=== PATIENT | female | born 1955 | race Caucasian/White ===

== ENCOUNTER 2025-03-13 23:55 | Inpatient (IN) | payer OTHER, SELFPAY ==
[2025-03-13 19:35] VITALS: BP 122/48
[2025-03-13 20:01] LABS: Hematocrit 31.6 % (37.0-47.0); Hemoglobin 11.1 g/dL (12.0-16.0); Mean Corp Hgb Conc. 35.1 g/dL (33.0-37.0); Mean Corpuscular Volume 85.2 fL (81.0-99.0); Platelet Count 390 10^3/uL (130-400); Red Cell Dist. Width 12.0 % (11.5-14.5)
[2025-03-13 20:23] LABS: ALT (SGPT) 25 U/L (0-35); AST (SGOT) 98 U/L (14-36); Albumin 4.7 g/dl (3.5-5.0); Alkaline Phosphatase 66 U/L (38-126); Blood Urea Nitrogen 30 mg/dl (7-17); Calcium 9.1 mg/dl (8.4-10.2); Carbon Dioxide 24 mmol/L (22-30); Chloride 77 mmol/L (98-107); Glucose 135 mg/dl (70-99); Potassium 3.6 mmol/L (3.5-5.1); Sodium 121 mmol/L (135-145); Total Protein 7.8 g/dl (6.3-8.2); eGFR 23.38
[2025-03-13 21:00] VITALS: BP 109/47
--- NOTE | 2025-03-13 22:28 | ED.GENMED ---
History of Present Illness
General
Chief Complaint: Change in Mental Status
Source: patient and family (Son who is present at the bedside)
Exam Limitations: none
Time Seen by Provider: 03/13/25 22:18
Nursing documentation reviewed up to this point in time: agreed with
History of Present Illness
History of Present Illness:
Note:
CHIEF COMPLAINT(S)
Change in mental status, mobility issues, decreased appetite, and confusion.
HISTORY OF PRESENT ILLNESS
The patient is a 69-year-old female with a significant change in mental status. She exhibits increased confusion, decreased mobility requiring assistance when navigating stairs, and marked reduction in activity levels, including lack of interest in
eating. Per her family member, the patient has not been performing her usual tasks like cleaning.
Laboratory results show markedly low sodium levels, necessitating hospital admission due to the potential risk of seizures or cardiac complications. Additionally, her thyroid-stimulating hormone (TSH) levels are elevated, indicative of
hypothyroidism likely due to non-compliance with her thyroid medication, which the family member supports. The patient was recently hospitalized due to severe leg swelling and was treated with antibiotics and steroids, but without much improvement.
There is also mention of pain, possibly chronic, but no specific management plan was confirmed.
Additional concerns include potential alcohol use, which may exacerbate the underlying conditions. The patient acknowledged previous alcohol use, although the current extent is minimized by her family member.
CHRONIC MEDICAL CONDITIONS SIGNIFICANTLY AFFECTING CARE
- Hypothyroidism
- Chronic pain
SOCIAL DETERMINANTS AFFECTING HEALTH
The patient has a history of alcohol use, though its current extent is unclear.
PHYSICAL EXAM
General: Alert, no acute distress.
Skin: Warm, dry.
Head: Normocephalic, atraumatic.
Neck: Supple, trachea midline.
Eyes, Ears, Nose, and Throat: Oral mucosa moist.
Cardiovascular: Normal peripheral perfusion, No edema.
Respiratory: Respirations are non-labored.
Gastrointestinal: Abdomen nondistended
Back: Normal range of motion, Normal alignment.
Musculoskeletal: Normal ROM, normal strength.
Neurological: Alert and oriented to person, place, time, and situation, No focal neurological deficit observed.
Psychiatric: Cooperative, appropriate mood and affect.
PLAN
The patients hyponatremia and hypothyroidism need urgent medical intervention. Hospital admission is advised to manage these conditions through fluid replacement and adjustment of thyroid medication. The possibility of a cardiac event due to low
sodium levels was discussed, highlighting the importance of prompt treatment. The patient�s family member was advised on the serious nature of these conditions and the need for admission to restore balance and alleviate confusion.
DIFFERENTIAL DIAGNOSIS
The Differential Diagnosis includes, in no particular order and is not limited to:
1. Hyponatremia
2. Hypothyroidism
3. Dementia
4. Stroke
5. Electrolyte imbalance
6. Acute alcohol withdrawal
7. Urinary tract infection
8. Medication side effects
9. Depression
10. Confusion due to thyroid imbalance
Disposition:
SUMMARY OF ENCOUNTER
The patient was seen in the emergency department due to a significant change in mental status, mobility issues, decreased appetite, and confusion. Upon evaluation, it was determined that the patient suffers from subclinical hypothyroidism and
hyponatremia. The patient exhibited increased confusion and decreased mobility, necessitating assistance with stairs, and displayed a marked reduction in activity levels, including not eating. Preliminary laboratory results indicated hyponatremia
and altered thyroid function. Nephrology was consulted regarding these findings, and the patient was ultimately being considered for admission to the hospice service for ongoing management.
DISPOSITION
Admit
MANAGEMENT OF THE PATIENTS CARE WAS DISCUSSED WITH
Consultation with nephrology for management decisions regarding hyponatremia and hypothyroidism.
PLAN
The plan involves addressing the patients hyponatremia and subclinical hypothyroidism with immediate medical intervention. Admission to hospice services was coordinated to provide ongoing monitoring and care. The plan also includes optimizing fluid
levels and adjusting thyroid medication as required, with close monitoring of electrolyte balance and thyroid levels.
INDEPENDENT REVIEW OF LABS AND INTERPRETATION OF TESTS
- My independent review of the metabolic panel shows hyponatremia.
- My independent review of thyroid function tests shows subclinical hypothyroidism.
- My independent review of urine osmolality is slightly low at 295 milliosmoles per kilogram.
- My independent review of random cortisol levels is 48.7.
- My independent review of urine sodium is 16 millimoles per liter.
MEDICAL DECISION MAKING
-Complexity of Data Reviewed: Chronic conditions affecting care include hypothyroidism and chronic pain. Differential Diagnosis includes hyponatremia, subclinical hypothyroidism, dementia, stroke, electrolyte imbalance, acute alcohol withdrawal,
urinary tract infection, medication side effects, depression, and confusion due to thyroid imbalance.
-Data:
Category 1
-Tests and Documents: Reviewed laboratory results indicating hyponatremia and subclinical hypothyroidism.
Category 3
-Discussion of management with nephrology regarding the patients hyponatremia and subclinical hypothyroidism with subsequent admission to the hospice service.
-Risk:
The risk was addressed by planning for immediate hospital admission for managing potential complications.
DIAGNOSIS
- Hyponatremia (ICD-10: E87.1)
- Subclinical Hypothyroidism (ICD-10: E02)
Phy Exam
Physical Exam
Physical Exam:
.
Course
Orders/Labs/Results
Orders:
Orders
03/13/25 19:43
Electrocardiogram (*1) Urgent
Reason for Study: Other
Other Reason for Exam: altered mental status
03/13/25 19:44
EKG- Treatment ONCE
03/13/25 19:51
Alcohol Urgent
CMP [Comprehensive Metabolic Panel] Urgent
Magnesium Urgent
Comment: ADD ON
03/13/25 19:52
Complete Blood Count/No Diff Urgent
Cortisol, Random Urgent
Comment: ADD ON
Free T4 Urgent
TSH Reflex To Free T4 Urgent
03/13/25 22:39
CT Head W/o Iv Contrast Urgent
Comment:
Reason For Exam: confusion
03/13/25 22:44
Add On- LAB Stat
Tests Added?: random cortisol
03/13/25 23:25
Add On- LAB Stat
Tests Added?: alcohol
Osmolality, Random Urine Urgent
Date Specimen was Collected: 03/13/25
Time Specimen was Collected: 23:24
Urine Sodium Urgent
Date Specimen was Collected: 03/13/25
Time Specimen was Collected: 23:24
03/13/25 23:28
CR Chest - 2 Views Stat
Comment:
Reason For Exam: Cough, ams, eval for consolidation
03/13/25 23:31
COVID-19 Antigen Stat
Source: Nasal Swab
03/13/25 23:42
Add On- LAB Stat
Tests Added?: magnesium level
03/13/25 23:46
Admit/Transfer Patient As Directed
Co-Sign Provider:
Level of Care: Inpatient admission
Assign to:: Telemetry
Physician / Group: Lia
Diagnosis: Hyponatremia
Reason for Telemetry: Medication for Arrhythmia
Date to Stop Telemetry: 03/15/25
Time to Stop Telemetry: 11:00
Reason for Hospitalization: Hyponatremia, altered mental status
Expected length of stay greater than two midnights?: Yes
ELOS- Estimated Length of Stay in days: 2
I certify the patient meets the requirements for IP care: Yes
PRN Pain Medication Management As Directed
May give lesser potent ordered pain med per pt: Yes
preference::
Protocol:: Medication orders for pain may be administered in a
manner that supports deferring to patient preference
when the pt is:
- Requesting an ordered lesser potent pain medication.
Least to most potent pain medications are defined
as: acetaminophen < NSAID < tramadol < opioids
(morphine, oxycodone, hydromorphone).
- Requesting a lesser dose of the same medication IF
ORDERED.
- Requesting a less intrusive route of administration
if both routes are prescribed by the provider (PO <
IV).
03/13/25 23:47
Code Status As Directed
Resuscitation Status: Full Code
03/15/25 11:00
DC Protocol for Telemetry ONCE
Abnormal Lab Results
03/13/25 03/13/25 03/13/25
19:51 19:52 23:25
WBC 12.8 H 10^3/uL
(4.8-10.8)
RBC 3.71 L 10^6/uL
(4.20-5.40)
Hgb 11.1 L g/dL
(12.0-16.0)
Hct 31.6 L %
(37.0-47.0)
Sodium 121 L mmol/L
(135-145)
Chloride 77 L mmol/L
(98-107)
BUN 30 H mg/dl
(7-17)
Creatinine 2.2 H mg/dL
(0.6-1.0)
Glucose 135 H mg/dl
(70-99)
Magnesium 0.7 L* mg/dl
(1.6-2.3)
AST 98 H U/L
(14-36)
TSH (Reflex) 28.90 H uIU/ml
(0.47-4.68)
Urine Osmolality 295 L mOsm/kg
(300-900)
Urine Sodium 16 L mmol/L
(30-90)
03/13/25 19:52
03/13/25 19:51
Vital Signs
Initial and Last Documented VS:
Initial Vital Signs
Temp Pulse Resp BP Pulse Ox
98.2 F 87 18 122/48 97
03/13/25 19:35 03/13/25 19:35 03/13/25 19:35 03/13/25 19:35 03/13/25 19:35
Last Documented Vital Signs
Temp Pulse Resp BP Pulse Ox
98.2 F 102 23 146/83 98
03/13/25 19:35 03/13/25 23:30 03/13/25 23:30 03/13/25 23:22 03/14/25 00:02
*Pulse Oximetry
SaO2: 100
Oxygen Mode of Delivery: Room air
Patient hypoxic: no
*Critical Care Note
Total Time (30-74mins, 75-104mins- exclusive of procedures): Not Applicable
ED Attending Note
-
Portions of this chart may have been created with voice recognition software.� Occasional wrong word or��sound alike� substitutions may have occurred due to the inherent limitations of voice recognition software.
Discharge Plan
Departure
Patient Disposition: Admit
Date of Disposition: 03/13/25
Time of Disposition: 22:28
Admit to: IMU
Presentation/result/management discussed w/ accepting MD/DO: Hospitalist
Discharge Problem:
Subclinical hypothyroidism, Acute hyponatremia
Interventions
Interventions:
*Risk Screen - Suicide Last Done: 03/13/25 19:39
*General Assessment Last Done: 03/13/25 21:31
*Neglect/Abuse Screening Last Done: 03/13/25 19:39
*ED- Fall Risk Assessment Last Done: 03/13/25 21:31
*ED COVID-19 Vaccine History Last Done: 03/13/25 21:31
*ED Influenza Vaccine History Last Done: 03/13/25 21:31
ED- Neurological Assessment Last Done: 03/13/25 21:31
--- NOTE | 2025-03-13 23:14 | HPS.HSE ---
Family Physician
-
Family Physician: Ludivina Randall
Chief Complaint
-
Altered mental status
History of Present Illness
This is a 69-year-old female with past medical history significant for COPD not on home O2, hypertension, bulimia, hypothyroid, history of breast cancer status post lumpectomy in the remote past, history of diverticulitis complicated by abscess
status post bowel resection, presents to the emergency department for altered mental status according to family members.
Patient herself denies any new symptoms except lethargy fatigue and weakness. Family reports that she has been having symptoms over the last 2 weeks. She has not been taking her medications regularly. She has not been eating. Patient states she
has only been drinking water. She stopped drinking alcohol about 2 weeks ago. She says she does not take her medications because she is unable to open her bottle. She is also has falls. She denies any lightheadedness or dizziness. She denies
any palpitations. She denies having any chest pain. She denies any lower extremity swelling.
She was admitted at having seen in December for lower extremity swelling that was thought to be secondary to cellulitis and possibly calcium channel blockade. She was started on spironolactone 1250 mg daily at that time. She has otherwise been on
her usual medications although she has not been taking them. Patient denies any significant diarrhea with the family reported that she had 2 days of diarrhea in the last 2 weeks. She has no nausea or vomiting. She denies constipation. She denies
urinary frequency incontinence or urgency. There has been no focal neurological deficits according to family members including no speech abnormalities, no facial droop no numbness or tingling. They do not know the last time she took any of her
medications.
On arrival in the emergency department she was afebrile, blood pressure was 109/47 with a pulse of 99 and she was satting 100% on room air. ECG shows atrial fibrillation with a rate of 102 QTc of 508 but otherwise unremarkable.
CBC shows a white count of 0.8 hemoglobin 11.1 and a platelet count of 390. Sodium of 121 potassium 3.6 BUN 30 and creatinine 2.2. AST was 98 the rest of the LFTs unremarkable. She has a TSH of 29, free T4 was 1.6.
Medical History
Past Medical History
Past Medical History: Reports Cancer (Breast cancer status postlumpectomy), COPD (Not on home O2), HTN, Hypercholesterolemia, Hypothyroidism, Psychiatric (Alcohol dependence) and Other (Peptic ulcer disease, history of bleeding ulcer many years ago)
Past Surgical History: Reports Bowel Resection (History of diverticulitis with abscess status post bowel resection and reanastomosis) and Other (Right lumpectomy)
Social History
Tobacco: Smoker
Alcohol: Daily
Drug: None
Personal: Single
Living: With Family
Employment: Not Employed
Family History
Family History: Not pertinent
Allergies / Home Medications
Allergies reflects when Allergies were last updated in [employer].
Home Medications with original date entered in [employer]
Allergy/Medication List:
Allergies
Allergy/AdvReac Type Severity Reaction Status Date / Time
No Known Allergies Allergy Verified 03/13/25 19:38
Home Medications
albuterol sulfate 90 mcg/actuation aerosol inhaler 2 inh inhalation Q6H 03/13/25
fluticasone furoate 100 mcg-vilanterol 25 mcg/dose inhalation powder (Breo Ellipta) inhalation 03/13/25
levothyroxine 100 mcg tablet 100 mcg PO DAILY 03/13/25
olmesartan 40 mg tablet 40 mg PO DAILY 03/13/25
pantoprazole 40 mg tablet,delayed release 40 mg PO DAILY 03/13/25
simvastatin 20 mg tablet 20 mg PO HS 03/13/25
spironolactone 50 mg tablet 50 mg PO DAILY 03/13/25
Review of Systems
-
History Source: Patient and Family
Constitutional: Reports Sleep Disturbance (increased sleepiness); Denies Chills
EENT: Reports No Symptoms
Respiratory: Reports Cough (chronic); Denies Trouble Breathing
Cardiac: Denies Chest Pain, Diaphoresis, Palpitations or Syncope
Abdomen/GI: Reports No Symptoms
: Reports No Symptoms
Musculoskeletal: Reports No Symptoms
Skin: Reports No Symptoms
Neurological: Reports No Symptoms
Endocrine: Reports No Symptoms
Hematologic/Lymphatic: Reports No Symptoms
Psych: Reports No Symptoms
Physical Exam
Vital Signs
Vital Signs
Temp Pulse Resp BP Pulse Ox
98.2 F 100 15 109/47 98
03/13/25 19:35 03/13/25 22:45 03/13/25 22:45 03/13/25 21:00 03/13/25 22:45
Physical Exam
General: No Apparent Distress
HEENT: NormoCephalic, Moist mucous membranes and Atraumatic
Respiratory: Clear
Cardiac: S1/S2, Irregular Rhythm and Peripheral Edema (trace); No Murmur or Rub
Breast: Deferred by me
GI: Soft, Non Tender, Non Distended and Normal Bowel Sounds; No Organomegaly
Rectal: Deferred by Provider
Genito-urinary: Deferred by me
Musculoskeletal: No Clubbing, No Cyanosis and Edema, Left Lower Extremity (trace left lower ext edema c/w recent cellulitis)
Skin: No Rash
Neuro: AO x 3 (oriented to person, place, year, month. ), Nonfocal/grossly intact and Cranial Nerves Intact; No Slurred Speech or Facial Droop
Psych: Calm
Laboratory Results
-
03/13/25 19:52
03/13/25 19:51
Laboratory Results
Total Bilirubin 1.1 mg/dl (0.2-1.3) 03/13/25 19:51
AST 98 U/L (14-36) H 03/13/25 19:51
ALT 25 U/L (0-35) 03/13/25 19:51
Alkaline Phosphatase 66 U/L (38-126) 03/13/25 19:51
Data Reviewed
-
Diagnostic Radiology: Image Personally Visualized and interpreted
CT Scan: Report Reviewed by me
Medical Tests (Nuc Med, Echo, EKG etc): Image Personally Visualized and interpreted
Lab Data: Labs Reviewed by me
Old Records: Reviewed
Impression/Plan
-
IMPRESSION:
69-year-old with past medical history significant for hypothyroid, hypertension, hyperlipidemia, COPD not on home O2, history of breast cancer status post lumpectomy in the past, history of a bowel resection presents to the emergency department with
2 weeks of decline in mental status and weakness. Mostly patient has been having insomnia. She has not been able to accomplish ADLs and has not been taking her medications. No obvious signs of infection on examination here. No symptoms
consistent with an infection on history. Found to have renal dysfunction with a creatinine of 2.2, family believes baseline creatinine is less than 1, has leukocytosis, elevated TSH and hyponatremia to 121. She also found to have new atrial
fibrillation with rate control. Patient endorses alcohol use with her last drink was stated to be about 2 weeks ago. She endorses decreased p.o. intake, loss of appetite.
PLAN:
Altered mental status -no focal deficits. New atrial fibrillation and cannot rule out multifocal thromboembolic event. There is evidence of toxic metabolic encephalopathy with hyponatremia although patient is currently alert oriented x 3 without
any acute symptoms. M no evidence of offending medications and patient has not been compliant anyway.
-Admit to telemetry
-In addition to metabolic workup below will do a stroke workup
-Neurochecks every 6 hours
-CT head pending, obtain echocardiogram and MRI in am
- Lipid panel, A1c
-Additional workup for toxic metabolic encephalopathy including UA, check folate B12 given h/o etoh
- TSH is elevated with normal free T4 c/w subclinical hypothyroid and patient is on synthroid, will continue current dosing
Hyponatremia - na 121, baseline is normal per family, Picture is multifactorial with elements of hypovolemia on history, tea/toast diet and free water intake. She is not on offending meds except spironolactone and has elevated Cr c/w LENA on CKD.
- Rolando 16, Uosm 295. C/W ADH presence or dehydration. D/W nephro, started 3% saline 20ml/hr
- free water restriction
- hold spironolactone for now
- random cortisol 46, no insufficiency
- nephrology consult
AFIB - new onset afib, rate controlled in the low 100s. Hx of edema to dihydropyridine. hx of peptic ulcer but no evidence of GI bleed recently
- start metoprolol tartrate 25 bid
- [id number] = 3, recommend eliquis, given weight and renal function 2.5 q 12
- continue ppi
- echo as above
- cardiology consult
LENA
- hold olmesartan and spironolactone for now
- obtain records from [facility]
Hypothyroid - H/O thyroid ablation therapy on levothyroxin. Poor compliance likely more than last 2 weeks. TSH 28, FT4 1.6.
- restart pt levothyroxine with goal tsh < 8
ETOH - LAST drink about 2 wks ago. Levels pending. No signs of withdrawal
- monitor for now
- suspect mild etoh induced liver injury with isolated AST elevation
- encourage cessation in setting of mental status changes
Pt consult
Case management
DVT PPX - to start apixaban 2.5
Code status - Full code
[2025-03-13 23:22] VITALS: BP 146/83
[2025-03-13 23:52] LABS: Cortisol, Random 48.7 ug/dl
[2025-03-13 23:52] LABS: COVID-19 Antigen Negative (Negative)
[2025-03-14] VITALS (8 sets, daily range): BP systolic 83–145; BP diastolic 38–67; PULSE 81–95
[2025-03-14 00:05] LABS: Magnesium 0.7 mg/dl (1.6-2.3)
[2025-03-14] MEDS: MAGNESIUM SULFATE 50 IV (01:08)
[2025-03-14] MEDS: SODIUM CHLORIDE 3% 250 IV ×2 (01:33→13:40)
[2025-03-14] MEDS: FLUSH (NSS) 1 FLUSH IV (01:34)
--- NOTE | 2025-03-14 02:30 | PTCARENOTE ---
Pt brought to unit from ED via stretcher. A&O to self. Ambulated from stretcher to bed with assistance of 1. Pt able to answer some admission questions. Pt confused and forgetful. NIH of 3. MSAS of 2. Bed alarm placed. Call light within reach. Plan
of care ongoing.
[2025-03-14] MEDS: SYNTHROID 100 MCG PO (05:42)
[2025-03-14 06:42] LABS: Hematocrit 26.2 % (37.0-47.0); Hemoglobin 9.5 g/dL (12.0-16.0); Mean Corp Hgb Conc. 36.3 g/dL (33.0-37.0); Mean Corpuscular Volume 84.0 fL (81.0-99.0); Platelet Count 256 10^3/uL (130-400); Red Cell Dist. Width 11.9 % (11.5-14.5)
[2025-03-14 06:49] LABS: Blood Urea Nitrogen 31 mg/dl (7-17); Calcium 8.2 mg/dl (8.4-10.2); Carbon Dioxide 24 mmol/L (22-30); Chloride 81 mmol/L (98-107); Glucose 100 mg/dl (70-99); HDL Cholesterol 81 mg/dl; LDL Cholesterol, Calculated 33 mg/dl; Magnesium 1.7 mg/dl (1.6-2.3); Potassium 3.2 mmol/L (3.5-5.1); Sodium 119 mmol/L (135-145); Very Low Density Lipoprotein 23 mg/dl (0-30); eGFR 26.22
[2025-03-14 07:33] LABS: Folate 4.5 ng/ml (2.76-20); Vitamin B12 903 pg/ml (239-931)
[2025-03-14] MEDS: SYMBICORT 160/4.5 MCG INHALER INH (08:16)
[2025-03-14] MEDS: THIAMINE INJECTION 200 MG IV ×2 (09:25→21:23)
[2025-03-14] MEDS: MAGNESIUM OXIDE 400 MG PO (09:25)
[2025-03-14] MEDS: KCL 270 MEQ IV (09:25)
[2025-03-14] MEDS: FOLVITE 1 MG PO (09:27)
[2025-03-14] MEDS: PROTONIX 40 MG PO (09:27)
[2025-03-14] MEDS: LOPRESSOR PO ×2 (09:27→21:28)
[2025-03-14] MEDS: ELIQUIS 2.5 MG PO (09:27)
--- NOTE | 2025-03-14 11:37 | CON.CAR ---
Addendum entered and electronically signed by Sohan Darden MD 03/14/25 12:26:
I saw and examined the patient.
The Well Tester's note was reviewed and I agree with the note.
Comment: GEN: No distress, awake, Ox3
HEENT: supple, anicteric, mmm
LUNGS: CTA, no wheezes/rales
CV: Reg with ectopy, S1/S2, 1/6 syst LSB, no gallop
ABD: soft, BS+, NT/ND
EXT: No edema
NEURO: Gross non-focal
SKIN: No rash
Plan:
69-year-old female with past medical history of COPD, tobacco use, hypertension, hypothyroidism, breast cancer status post XRT, diverticulitis status post bowel obstruction and abscess and alcoholic abuse presents with confusion, lethargy, acute
renal failure, and hyponatremia. The patient states that she has been drinking lots of water has had decreased mobility and feeling poorly. She is also having memory issues. She denies any chest pains. She denies any shortness of breath. She
gets rare palpitations. We are asked to see her for possible atrial fibrillation.
Echocardiogram March 14, 2025 reveals EF of 60% with mild AI and moderate TR. PA pressure 36
Telemetry and EKG reviewed which reveals sinus rhythm with frequent PACs and ectopic atrial rhythm.
Plan she presents with marked hyponatremia and acute renal failure. Creatinine is improving. Total CK was also elevated.
She was given 3% saline and clinically is improving. Her sodium currently though is 119. At this point we do not see any evidence of atrial fibrillation and no indications for anticoagulation. She has premature beats and PACs.
Will continue metoprolol 12.5 mg p.o. twice daily.
Her TSH is markedly elevated but free T4 was normal. Continue thyroid supplement.
Would follow peripherally and check telemetry, however if no clear atrial fibrillation would treat underlying medical issues.
Original Note:
Consultation
Consultation Request
Date/Time Consultation Requested: 03/14/2025
Date/Time Consultation Performed: 03/14/2025
Requesting Provider: Dr. Montez
Performing Provider: Faye Hernández PA-C for Dr. Darden
Reason for Consultation: Possible atrial fibrillation
Medical History
-
History of Present Illness:
Patient is a 69-year-old female with past medical history significant for COPD with ongoing tobacco abuse, hypertension, hypothyroid, right sided breast cancer status post lumpectomy and XRT, diverticulitis with abscess and bowel obstruction and
alcohol abuse who presents to emergency department 03/13/2025 with altered mental status, weakness and lethargy. Patient's family reports over the last 2 weeks patient had been more confused. There was noncompliance in taking her medications. Her
appetite has been reduced and she was drinking a lot of water. Per patient she has only been drinking alcohol on weekends but does have prior history of daily use. Family also reported decreased mobility and falls. However, patient reports she
has only had 'a few falls.' Patient reports her memory is not the greatest and she is more forgetful. Patient denies nausea vomiting or diarrhea. She was placed on Aldactone in December for lower extremity edema. Unclear if she has been taking
it. On arrival to emergency department patient was found to have LENA with creatinine of 2.2, electrolyte disturbances with sodium 121, potassium 3.6, magnesium 0.7. TSH was found to be elevated at 28.9. CK 1127. AST elevated at 98. Chest x-ray
showed evidence of COPD. EKG showed sinus rhythm with PACs and anterolateral T wave inversion/abnormality. Patient received aggressive repletion of her magnesium. Cardiology being asked to see patient for concerns for atrial fibrillation.
However upon review of telemetry it appears that patient is having sinus rhythm with frequent PACs and ectopic atrial rhythm.
Past medical history:
COPD with ongoing tobacco abuse
Hypertension
Hypothyroidism
Right-sided breast cancer status post XRT and lumpectomy in early 1999
Diverticulitis complicated by abscess with bowel obstruction
History of alcohol abuse
History of noncompliance with medications
Past Medical History
Past Medical History: Other (See HPI)
Past Surgical History: Bowel Resection (For diverticulitis with abscess) and Other
Social History
Tobacco: Smoker
Alcohol: Daily (Except recently patient reports she has only been drinking alcohol on weekends)
Drug: None
Living: With Family (Son Matt)
Family History
Family History: Reviewed & Not Pertinent
Allergies / Home Medications
Allergy/AdvReac Type Severity Reaction Status Date / Time
No Known Allergies Allergy Verified 03/13/25 19:38
�Medication �Instructions �Recorded �Confirmed �Type
albuterol sulfate 90 mcg/actuation 2 inh inhalation Q6HPRN PRN 03/13/25 03/14/25 History
aerosol inhaler sob/wheezing
fluticasone furoate 100 1 inh inhalation DAILY 03/13/25 03/14/25 History
mcg-vilanterol 25 mcg/dose Lung/Breathing Issues
inhalation powder (Breo Ellipta)
levothyroxine 100 mcg tablet 100 mcg PO DAILY Thyroid 03/13/25 03/14/25 History
olmesartan 40 mg tablet 40 mg PO DAILY Blood Pressure 03/13/25 03/14/25 History
pantoprazole 40 mg tablet,delayed 40 mg PO DAILY Gastrointestinal 03/13/25 03/14/25 History
release Issue
simvastatin 20 mg tablet 20 mg PO HS cholesterol 03/13/25 03/14/25 History
spironolactone 50 mg tablet 50 mg PO DAILY Fluid Retention/BP 03/13/25 03/14/25 History
lorazepam 1 mg tablet 1 mg PO BIDPRN PRN anxiety 03/14/25 03/14/25 History
oxycodone 5 mg tablet 5 mg PO Q4HPRN PRN moderate pain 03/14/25 03/14/25 History
Review of Systems
-
History Source: Patient
All other systems: Negative unless noted
Physical Exam
Vital Signs
Temp Pulse Resp BP Pulse Ox
98.0 F 81 17 104/50 95
03/14/25 11:00 03/14/25 11:00 03/14/25 11:00 03/14/25 11:00 03/14/25 11:00
GEN: No distress, awake, Ox3
HEENT: supple, anicteric, mmm
LUNGS: Few scattered coarse breath sounds improved after coughing otherwise CTA, no wheezes
CV: Reg with occasional ectopy, S1/S2, 1/6 syst murmur at LSB
ABD: soft, BS+, NT/ND
EXT: No edema, clubbing or cyanosis
NEURO: Forgetful and poor historian
SKIN: No rash, warm, dry, pink
Lab Results
03/14/25 05:42
Impression / Plan
-
PCP: Honey Randall
[employer] Official: None prior to admission, initial consultation Dr. Darden
Impression:
Presented 03/13/2025 with altered mental status, weakness, lethargy and generalized fatigue
LENA, unknown baseline creatinine
Electrolyte derangement
Hyponatremia
Hypokalemia
Hypomagnesemia
Abnormal LFTs
Hypothyroidism, TSH 28.9
COPD with ongoing tobacco abuse
Hypertension
Hypothyroidism
Right-sided breast cancer status post XRT and lumpectomy in early 1999
Diverticulitis complicated by abscess with bowel obstruction
History of alcohol abuse
History of noncompliance with medications
Echo 03/14/2025: EF 68%. Mild AI. Moderate TR with PAP 36 mmHg. Trivial pericardial effusion
Plan:
Presented 03/13/2025 with altered mental status, weakness, lethargy and generalized fatigue. She was found to have LENA with significant electrolyte derangement as well as abnormal AST and hypothyroidism.
Cardiology being asked to see patient for possible atrial fibrillation. Upon review of initial EKG and as well as telemetry patient is in sinus rhythm with frequent PACs and occasional ectopic atrial rhythm. There is no evidence of atrial
fibrillation. Would continue with ongoing electrolyte repletion/correction
Echocardiogram this admission discussed with patient which shows shows preserved ejection fraction with mild AI and moderate TR.
Electrolyte derangement likely secondary to poor dietary intake as well as drinking excessive water. Ongoing repletion of electrolytes, with improvement of magnesium from 0.7 to 1.7, potassium 3.2 with ongoing repletion. Sodium initially 121
however now 119. Nephrology has been consulted. Defer management to them. Would restrict free water.
TSH 28.9 with free T4 1.36. Patient has not been taking her levothyroxine which likely is accounting for abnormality.
Head CT shows moderate cortical atrophy and chronic ischemic disease but no acute abnormality. MRI has been ordered.
HPI 03/14/2025:
Patient is a 69-year-old female with past medical history significant for COPD with ongoing tobacco abuse, hypertension, hypothyroid, right sided breast cancer status post lumpectomy and XRT, diverticulitis with abscess and bowel obstruction and
alcohol abuse who presents to emergency department 03/13/2025 with altered mental status, weakness and lethargy. Patient's family reports over the last 2 weeks patient had been more confused. There was noncompliance in taking her medications. Her
appetite has been reduced and she was drinking a lot of water. Per patient she has only been drinking alcohol on weekends but does have prior history of daily use. Family also reported decreased mobility and falls. However, patient reports she
has only had 'a few falls.' Patient reports her memory is not the greatest and she is more forgetful. Patient denies nausea vomiting or diarrhea. She was placed on Aldactone in December for lower extremity edema. Unclear if she has been taking
it. On arrival to emergency department patient was found to have LENA with creatinine of 2.2, electrolyte disturbances with sodium 121, potassium 3.6, magnesium 0.7. TSH was found to be elevated at 28.9. CK 1127. AST elevated at 98. Chest x-ray
showed evidence of COPD. EKG showed sinus rhythm with PACs and anterolateral T wave inversion/abnormality. Patient received aggressive repletion of her magnesium. Cardiology being asked to see patient for concerns for atrial fibrillation.
However upon review of telemetry it appears that patient is having sinus rhythm with frequent PACs and ectopic atrial rhythm.
Data Reviewed
-
EKG: Report Reviewed by me, Discussed with Physician and Discussed with Patient
Radiology: Report Reviewed by me, Discussed with Physician and Discussed with Patient
Medical Tests (Nuc Med, Echo etc): Report Reviewed by me, Discussed with Physician and Discussed with Patient
Labs: Labs Reviewed by me, Discussed with Physician and Discussed with Patient
Old Records: Reviewed
--- NOTE | 2025-03-14 12:13 | W.CON.NEPH ---
Medical History
-
Chief Complaint: AMS
History of Present Illness:
69-year-old female with past medical history significant for COPD not on home O2, hypertension on Olmesartan, spironolactone, bulimia, hypothyroid on levothyroxine, history of breast cancer status post lumpectomy in the remote past, history of
diverticulitis complicated by abscess status post bowel resection, presents to the emergency department for altered mental status according to family members on 03/13. per family report she has been having symptoms over the last 2 weeks. She has
not been taking her medications regularly. She has not been eating. Patient states she has only been drinking water 4-6cups of 16oz.. She stopped drinking alcohol about 2 weeks ago. She says she does not take her medications because she is
unable to open her bottle. She is also has falls. She denies any lightheadedness or dizziness. She denies any palpitations. She denies having any chest pain. She denies any lower extremity swelling. no fever. has smoker cough. No dysuria, no
abd pain or n/v other than lack of appetite. Her balance is off too. Labs noted sodium 121, cr 2.2, bun 30. TSH was 29, FT4 1.6, WBC 12.8, hb 11.1, plt 390. Nephrology consulted for managing hyponatremia. She was getting 3% saline and sodium down to
119 this am.
She was at OSH in December for lower extremity swelling that was thought to be secondary to cellulitis and possibly calcium channel blockade. She was changed spironolactone at that time. She usually has care at [facility] so waiting for records.
Does not recall of kidney issues.
Past Medical History
Breast cancer status postlumpectomy), COPD (Not on home O2), HTN, Hypercholesterolemia, Hypothyroidism, Psychiatric (Alcohol dependence) and Other (Peptic ulcer disease, history of bleeding ulcer many years ago
Past Surgical History: Other (BOwel resection, History of diverticulitis with abscess status post bowel resection and reanastomosis) and Other (Right lumpectomy)
Social History
Tobacco: Smoker (1PPD)
Alcohol: Daily (2-3drinks, more on weekend)
Drug: None
Personal: Single
Living: With Family
Employment: Not Employed
Family History
Family History: Not Pertinent
Allergies / Home Medications
Allergy/AdvReac Type Severity Reaction Status Date / Time
No Known Allergies Allergy Verified 03/13/25 19:38
�Medication �Instructions �Recorded �Confirmed �Type
albuterol sulfate 90 mcg/actuation 2 inh inhalation Q6HPRN PRN 03/13/25 03/14/25 History
aerosol inhaler sob/wheezing
fluticasone furoate 100 1 inh inhalation DAILY 03/13/25 03/14/25 History
mcg-vilanterol 25 mcg/dose Lung/Breathing Issues
inhalation powder (Breo Ellipta)
levothyroxine 100 mcg tablet 100 mcg PO DAILY Thyroid 03/13/25 03/14/25 History
olmesartan 40 mg tablet 40 mg PO DAILY Blood Pressure 03/13/25 03/14/25 History
pantoprazole 40 mg tablet,delayed 40 mg PO DAILY Gastrointestinal 03/13/25 03/14/25 History
release Issue
simvastatin 20 mg tablet 20 mg PO HS cholesterol 03/13/25 03/14/25 History
spironolactone 50 mg tablet 50 mg PO DAILY Fluid Retention/BP 03/13/25 03/14/25 History
lorazepam 1 mg tablet 1 mg PO BIDPRN PRN anxiety 03/14/25 03/14/25 History
oxycodone 5 mg tablet 5 mg PO Q4HPRN PRN moderate pain 03/14/25 03/14/25 History
Review of Systems
-
All other systems: Negative unless noted
Physical Exam
Vital Signs
Vital Signs
Temp Pulse Resp BP Pulse Ox
98.0 F 81 17 104/50 95
03/14/25 11:00 03/14/25 11:00 03/14/25 11:00 03/14/25 11:00 03/14/25 11:00
Lab Results
WBC 9.3 10^3/uL (4.8-10.8) 03/14/25 05:42
RBC 3.12 10^6/uL (4.20-5.40) L 03/14/25 05:42
Hgb 9.5 g/dL (12.0-16.0) L 03/14/25 05:42
Hct 26.2 % (37.0-47.0) L 03/14/25 05:42
Plt Count 256 10^3/uL (130-400) D 03/14/25 05:42
eGFR 26.22 03/14/25 05:42
Phosphorus 3.9 mg/dl (2.5-4.5) 03/14/25 05:42
Albumin 4.7 g/dl (3.5-5.0) 03/13/25 19:51
Abnormal Lab Results
03/13/25 03/13/25 03/13/25
19:51 19:52 23:25
WBC 12.8 H
RBC 3.71 L
Hgb 11.1 L
Hct 31.6 L
Sodium 121 L
Potassium
Chloride 77 L
BUN 30 H
Creatinine 2.2 H
Glucose 135 H
Calcium
Magnesium 0.7 L*
AST 98 H
Creatine Kinase
TSH (Reflex) 28.90 H
Urine Osmolality 295 L
Urine Sodium 16 L
03/14/25 03/14/25
05:42 11:25
WBC
RBC 3.12 L
Hgb 9.5 L
Hct 26.2 L
Sodium 119 L* 121 L
Potassium 3.2 L
Chloride 81 L 83 L
BUN 31 H 32 H
Creatinine 2.0 H 1.7 H
Glucose 100 H 112 H
Calcium 8.2 L
Magnesium
AST
Creatine Kinase 1127 H
TSH (Reflex)
Urine Osmolality
Urine Sodium
Physical Exam
General: Awake, Alert, Oriented, AOx3, No Distress and Nontoxic
HEENT: EOMI, Anicteric, Conjunctivae Clear and Facial Symmetry
Respiratory: Clear, Normal Excursion and Nonlabored Respirations
Cardiac: S1/S2 and Regular Rate/Rhythm
Breast: Deferred by me
Abdomen: Soft, Nontender and Nondistended
Musculoskeletal: No Cyanosis and Edema (trace)
Skin: No Rash
Neuro: Nonfocal/Grossly Intact
Psych: Appropriate
Data Reviewed
-
Labs: Labs Reviewed by me, Discussed with Nurse and Discussed with Patient
Assessment/Plan
-
IMP:
Altered mental status
New atrial fibrillation
LENA
Hyponatremia
Hypokalemia
Hypomagnesemia
Hypothyroid - H/O thyroid ablation therapy on levothyroxin. Poor compliance likely more than last 2 weeks. TSH 28, FT4 1.6.
ETOH
Hypocalcemia
Mild rhabdomyolysis
PLan:
A/w AMS, decreased po intake and meds
LENA-suspect prerenal, however recent addition of aldactone in Sep too
check UA and bladder scan, renal US , holding ACEI and MRA
Hyponatremia-high ADH state , U osmo 295 and U na low 16, was only taking liquids recently+chr ETOH use
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
recheck labs now and goal of correction 6-8meq/day , cont HTS +/-lasix
maintain FR 40ounces/day
replace k and mg
encourage solute intake
TSH high 28, resumed on LT4
BP soft, hold all anti HTN meds
afib per cards
d/w pt and nursing
[2025-03-14 12:29] LABS: Blood Urea Nitrogen 32 mg/dl (7-17); Calcium 8.4 mg/dl (8.4-10.2); Carbon Dioxide 26 mmol/L (22-30); Chloride 83 mmol/L (98-107); Glucose 112 mg/dl (70-99); Potassium 3.7 mmol/L (3.5-5.1); Sodium 121 mmol/L (135-145); eGFR 31.86
--- NOTE | 2025-03-14 14:16 | W.PN.HOSP.TC ---
Today's Communication/Plan
-
Assessment / Plan
Assessment / Plan
General: No Apparent Distress, Comfortable and Conversant
HEENT: NormoCephalic, Moist mucous membranes, Atraumatic
Respiratory: Clear and Non Labored Respirations
Cardiac: S1/S2 and Regular Rhythm; No Rub or Gallop
GI: Soft, Non Tender, Non Distended and Normal Bowel Sounds
Musculoskeletal: No Edema, no deformity
Skin: Warm and dry
: NO Patricia
Neuro: Awake, Alert, Nonfocal/grossly intact
Psych: Calm and Intact Judgment/Insight
Ms. Sharma is a 69-year-old female with medical history of COPD (not on home oxygen), hypertension, hypothyroidism, peptic ulcer disease, diverticulitis (status post bowel resection and reanastomosis), breast cancer (status post lumpectomy), and
alcohol use who presented with lethargy and fatigue. Her symptoms began approximately 2 weeks ago which coincides with when she stopped drinking alcohol. Her symptoms have been progressing since that time. She has not been taking her home
medications consistently and has not been eating. Reportedly she has been having falls. In the ED she was found to be borderline hypotensive and had a serum sodium of 121 and a creatinine of 2.2. Her TSH was elevated at 29 with a normal free T4
of 1.6. She was reportedly noted to have A-fib with controlled heart rate. However EKG shows normal sinus rhythm with PACs. She was started beta-blockade considering her prior history of lower extremity edema with calcium channel blockers. She
was started on hypertonic saline and admitted for further evaluation and management.
Acute metabolic encephalopathy:
- Likely contributed to by hyponatremia, although this is likely chronic considering her history of alcohol use
- Long-term alcohol abuse also likely a contributing factor here
- Continue hypertonic IV fluids for correction of hyponatremia, appreciate nephrology guidance
- Fluid restriction
- Continue thiamine and folate
- Continue home levothyroxine 100 mcg daily as scheduled
Hyponatremia:
- Treatment as outlined above
Arrhythmia:
- Unclear that she has A-fib, EKG shows normal sinus rhythm with PACs
- Cardiology following, agree with continuing beta-iesha
- Echocardiogram shows preserved ejection fraction, moderate TR
- Continue telemetry monitoring
LENA:
- Likely prerenal, also likely contributed to by abnormalities
- Creatinine 2.2, improved to 1.7 with IV fluids
- Holding spironolactone and olmesartan
- Continue to monitor
Hypothyroidism:
- Status post thyroid ablation
- Continue home Synthroid 100 mcg daily
- TSH elevated at 28.9 with normal free T4 of 1.63, likely due to nonadherence with home medication regimen over the past 2 weeks
Rhabdomyolysis:
- Nontraumatic
- Creatinine kinase 1127
- Continue IV fluids
Electrolyte abnormalities:
- Hypokalemia and hypomagnesemia resolved
- Will monitor
DVT prophylaxis: Subcu heparin
CODE STATUS: Full code
Anticipated Discharge: > 48 hours
Subjective/Interval History
-
Date of Service: March 14, 2025
Patient was seen and examined at bedside this morning. Comfortable but reports being very tired.
Objective Data
-
Labs:
Laboratory Results
03/14/25 03/14/25 03/14/25
05:42 11:25 17:00
WBC 9.3
Hgb 9.5 L
Hct 26.2 L
Plt Count 256 D
Sodium 119 L* 121 L Pending
Potassium 3.2 L 3.7 Pending
Chloride 81 L 83 L Pending
Carbon Dioxide 24 26 Pending
BUN 31 H 32 H Pending
Creatinine 2.0 H 1.7 H Pending
Glucose 100 H 112 H Pending
Calcium 8.2 L 8.4 Pending
Vital Signs:
Vital Signs
Temp Pulse Resp BP Pulse Ox
98.0 F 81 17 104/50 95
03/14/25 11:00 03/14/25 11:00 03/14/25 11:00 03/14/25 11:00 03/14/25 11:00
Review of Systems
-
History Source: Patient
All other systems: Reviewed and negative
Constitutional: Reports Fatigue
Physical Exam
-
General: No Apparent Distress
--- NOTE | 2025-03-14 14:41 | CM ---
Patient seen bedside.
IA completed.
Son lives with patient in a split level home.
Patient denies difficulty with steps. Independent prior to admission.
Patient does not use a AD.
Patient says she does drive.
Has no equipment at home.
Had VN in the remote past, no hx skilled rehab.
PT eval completed, recommendation is for home with [facility]. Patient would like [facility].
Patient does not feels she needs VN, but is agreeable for them to come out and see her.
Denies any insecurities at home.
PCP: Dr Randall
Pharmacy: [facility]
Plan: home with VN, referral to [facility].
--- NOTE | 2025-03-14 15:07 | VNURNOTE ---
Home Health Liaison met with patient at bedside to discuss [facility] nurse/therapy, visits, schedule and homebound status. Patient is agreeable and understands that visits at home will be 2-3 x per week to assess and teach medical management.
Patient is aware that [facility] will contact them for start of care within a week after discharge from . Provided contact number for [facility].
[facility] referral completed in [facility].
[2025-03-14] MEDS: HEPARIN 5000 UNITS SC (16:55)
[2025-03-14] MEDS: ROXICODONE 5 MG PO ×2 (17:06→21:23)
[2025-03-14] MEDS: SYMBICORT 160/4.5 MCG INHALER 2 PUFF INH (17:50)
[2025-03-14 19:27] LABS: Blood Urea Nitrogen 30 mg/dl (7-17); Calcium 8.5 mg/dl (8.4-10.2); Carbon Dioxide 24 mmol/L (22-30); Chloride 91 mmol/L (98-107); Glucose 148 mg/dl (70-99); Potassium 4.1 mmol/L (3.5-5.1); Sodium 124 mmol/L (135-145); eGFR 40.22
[2025-03-14] MEDS: LIPITOR 10 MG PO (21:29)
[2025-03-15] VITALS (7 sets, daily range): BP systolic 97–116; BP diastolic 35–63; PULSE 85–98
[2025-03-15] MEDS: HEPARIN 5000 UNITS SC ×3 (01:00→16:39)
[2025-03-15 01:34] LABS: Urine Character Clear (Clear)
[2025-03-15 02:05] LABS: Urine Squamous Cell >30 /LPF (Few); Urine Urothelial Cell >30 /LPF (FEW)
[2025-03-15 02:07] LABS: Urine White Cell 50-60 /HPF (0-5)
[2025-03-15] MEDS: SYNTHROID 100 MCG PO (05:54)
[2025-03-15] MEDS: ROXICODONE 5 MG PO ×4 (06:08→20:54)
[2025-03-15 06:14] LABS: Hematocrit 25.5 % (37.0-47.0); Hemoglobin 9.2 g/dL (12.0-16.0); Mean Corp Hgb Conc. 36.1 g/dL (33.0-37.0); Mean Corpuscular Volume 85.0 fL (81.0-99.0); Nucleated Red Blood Cells % 0 %; Platelet Count 287 10^3/uL (130-400); Red Cell Dist. Width 12.1 % (11.5-14.5)
[2025-03-15 06:58] LABS: Blood Urea Nitrogen 25 mg/dl (7-17); Calcium 8.7 mg/dl (8.4-10.2); Carbon Dioxide 25 mmol/L (22-30); Chloride 96 mmol/L (98-107); Glucose 149 mg/dl (70-99); Magnesium 1.6 mg/dl (1.6-2.3); Potassium 3.9 mmol/L (3.5-5.1); Sodium 127 mmol/L (135-145); eGFR > 60.00
[2025-03-15] MEDS: SYMBICORT 160/4.5 MCG INHALER 2 PUFF INH ×2 (07:38→19:29)
[2025-03-15] MEDS: THIAMINE INJECTION 200 MG IV ×2 (09:08→20:54)
[2025-03-15] MEDS: FOLVITE 1 MG PO (09:09)
[2025-03-15] MEDS: PROTONIX 40 MG PO (09:09)
[2025-03-15] MEDS: SODIUM PHOSPHATE 255 MEQ IV (09:09)
[2025-03-15] MEDS: MAGNESIUM OXIDE 400 MG PO (09:09)
[2025-03-15] MEDS: LOPRESSOR 12.5 MG PO (09:10)
--- NOTE | 2025-03-15 11:01 | W.PN.UPDATE ---
Update Note
Progress Note Update
Telemetry demonstrates sinus rhythm and sinus tachycardia with PACs.
We will sign off please call back with further questions
--- NOTE | 2025-03-15 13:37 | W.PN.NEPH.PH ---
Today's Communication / Plan
-
Follow electrolytes and maintain fluid restriction
Follow-up BMP
Holding antihypertensives in setting of hypotension
Assessment/Plan
-
IMP:
Altered mental status
New atrial fibrillation
LENA
Hyponatremia
Hypokalemia
Hypomagnesemia
Hypothyroid - H/O thyroid ablation therapy on levothyroxin. Poor compliance likely more than last 2 weeks. TSH 28, FT4 1.6.
ETOH
Hypocalcemia
Mild rhabdomyolysis
PLan:
A/w AMS, decreased po intake and meds
LENA-suspect prerenal, however recent addition of aldactone in Sep too , creatinine improved to 1.2 with sabianist of blood pressure
Renal ultrasound normal, holding ACEI and MRA
Hyponatremia-high ADH state , U osmo 295 and U na low 16, was only taking liquids recently+chr ETOH use
Possible underlying SIADH from COPD, sodium improved to 127 with hypertonic saline maintain fluid restriction
CPK levels dropping
maintain FR 40ounces/day
encourage solute intake
TSH high 28, resumed on LT4
BP soft, hold all anti HTN meds
afib per cards
d/w pt and nursing
-
-
Date of Service: March 15, 2025
CC / HPI / ROS
-
Chief Complaint:
LENA/Hyponatremia
History of Present Illness:
Creatinine improving to 1.2
Hyponatremia improved to 127 following hypertonic saline administration
Blood pressure remains soft only on metoprolol at this time
Review of Systems:
Nonoliguric
More awake and interactive and wants to go home
No fevers
Labs
-
Labs:
WBC 6.7 10^3/uL (4.8-10.8) 03/15/25 05:40
RBC 3.00 10^6/uL (4.20-5.40) L 03/15/25 05:40
Hgb 9.2 g/dL (12.0-16.0) L 03/15/25 05:40
Hct 25.5 % (37.0-47.0) L 03/15/25 05:40
Plt Count 287 10^3/uL (130-400) 03/15/25 05:40
eGFR > 60.00 03/15/25 05:40
Albumin 4.7 g/dl (3.5-5.0) 03/13/25 19:51
Physical Exam
-
Vital Signs:
Vital Signs
Temp Pulse Resp BP Pulse Ox
98.1 F 83 16 112/46 96
03/15/25 11:45 03/15/25 13:23 03/15/25 13:23 03/15/25 03:00 03/15/25 13:23
Cardiovascular:: Regular rate and rhythm
Respiratory:: Bilateral: CTA
Lung Excursion:: Normal
Abdomen:: Nontender and Soft
Bowel Sounds:: Normal
Extremity Edema:: None: Bilateral:
Patricia Catheter: No
[2025-03-15 15:21] LABS: Blood Urea Nitrogen 21 mg/dl (7-17); Calcium 8.6 mg/dl (8.4-10.2); Carbon Dioxide 28 mmol/L (22-30); Chloride 94 mmol/L (98-107); Glucose 147 mg/dl (70-99); Magnesium 1.3 mg/dl (1.6-2.3); Potassium 3.1 mmol/L (3.5-5.1); Sodium 126 mmol/L (135-145); eGFR > 60.00
[2025-03-15] MEDS: MAGNESIUM SULFATE 100 IV (16:39)
[2025-03-15] MEDS: KCL 40 MEQ PO (16:39)
--- NOTE | 2025-03-15 16:44 | W.PN.HOSP.TC ---
Today's Communication/Plan
-
Assessment / Plan
Assessment / Plan
General: No Apparent Distress, Comfortable and Conversant
HEENT: NormoCephalic, Moist mucous membranes, Atraumatic
Respiratory: Clear and Non Labored Respirations
Cardiac: S1/S2 and Regular Rhythm; No Rub or Gallop
GI: Soft, Non Tender, Non Distended and Normal Bowel Sounds
Musculoskeletal: No Edema, no deformity
Skin: Warm and dry
: NO Patricia
Neuro: Awake, Alert, Nonfocal/grossly intact
Psych: Calm and Intact Judgment/Insight
Ms. Sharma is a 69-year-old female with medical history of COPD (not on home oxygen), hypertension, hypothyroidism, peptic ulcer disease, diverticulitis (status post bowel resection and reanastomosis), breast cancer (status post lumpectomy), and
alcohol use who presented with lethargy and fatigue. Her symptoms began approximately 2 weeks ago which coincides with when she stopped drinking alcohol. Her symptoms have been progressing since that time. She has not been taking her home
medications consistently and has not been eating. Reportedly she has been having falls. In the ED she was found to be borderline hypotensive and had a serum sodium of 121 and a creatinine of 2.2. Her TSH was elevated at 29 with a normal free T4
of 1.6. She was reportedly noted to have A-fib with controlled heart rate. However EKG shows normal sinus rhythm with PACs. She was started beta-blockade considering her prior history of lower extremity edema with calcium channel blockers. She
was started on hypertonic saline and admitted for further evaluation and management.
Acute metabolic encephalopathy:
- Resolving
- Likely contributed to by hyponatremia, although this is likely chronic considering her history of alcohol use, serum sodium 127 this morning
- Long-term alcohol abuse also likely a contributing factor here
- IV fluids discontinued, appreciate nephrology guidance
- Continue fluid restriction
- Continue thiamine and folate
- Continue home levothyroxine 100 mcg daily as scheduled
- Anticipate discharge home tomorrow 03/16
Hyponatremia:
- Treatment as outlined above
Arrhythmia:
- Unclear that she has A-fib, EKG shows normal sinus rhythm with occasional sinus tachycardia and PACs
- Echocardiogram shows preserved ejection fraction, moderate TR
- Continuing low-dose metoprolol to tartrate
- Cardiology signing off
LENA:
- Likely prerenal, also likely contributed to by abnormalities
- Creatinine 2.2 initial, given IV fluids, creatinine 1.0 this morning
- Continue holding spironolactone and olmesartan
Hypothyroidism:
- Status post thyroid ablation
- Continue home Synthroid 100 mcg daily
- TSH elevated at 28.9 with normal free T4 of 1.63, likely due to nonadherence with home medication regimen over the past 2 weeks
Rhabdomyolysis:
- Nontraumatic
- Creatinine kinase 1127 initially, improved to 664 today
- IV fluids not continued, will repeat CK in the morning
Electrolyte abnormalities:
- Hypokalemic with serum potassium 3.1 and hypomagnesemic with serum magnesium 1.3
- Repleting
- Will monitor
DVT prophylaxis: Subcu heparin
CODE STATUS: Full code
Anticipated Discharge: 24 - 48 hours
Subjective/Interval History
-
Date of Service: March 15, 2025
Patient was seen and examined at bedside this morning. Anxious to go home. Still hyponatremic. Lethargy has improved.
Objective Data
-
Labs:
Laboratory Results
03/15/25 03/15/25
05:40 14:41
WBC 6.7
Hgb 9.2 L
Hct 25.5 L
Plt Count 287
Sodium 127 L 126 L
Potassium 3.9 3.1 L
Chloride 96 L 94 L
Carbon Dioxide 25 28
BUN 25 H 21 H
Creatinine 1.0 0.9
Glucose 149 H 147 H
Calcium 8.7 8.6
Vital Signs:
Vital Signs
Temp Pulse Resp BP Pulse Ox
97.5 F 79 16 105/35 96
03/15/25 16:08 03/15/25 16:08 03/15/25 16:08 03/15/25 16:08 03/15/25 16:08
I&O
03/14/25 03/15/25 03/16/25
06:59 06:59 06:59
Intake Total 1370 / 1370
Output Total 350 / 350
Balance 1020 / 1020
Review of Systems
-
History Source: Patient
All other systems: Reviewed and negative
Physical Exam
-
General: No Apparent Distress
[2025-03-15] MEDS: LOPRESSOR PO (20:35)
[2025-03-15] MEDS: LIPITOR 10 MG PO (20:54)
[2025-03-16] MEDS: HEPARIN SC ×2 (01:07→16:45)
[2025-03-16] MEDS: ROXICODONE 5 MG PO ×3 (02:02→13:57)
[2025-03-16] MEDS: SYNTHROID 100 MCG PO (05:27)
[2025-03-16] MEDS: SYMBICORT 160/4.5 MCG INHALER 2 PUFF INH (07:28)
[2025-03-16 08:00] VITALS: BP 122/48
[2025-03-16 08:19] LABS: Hematocrit 26.0 % (37.0-47.0); Hemoglobin 8.9 g/dL (12.0-16.0); Mean Corp Hgb Conc. 34.2 g/dL (33.0-37.0); Mean Corpuscular Volume 84.4 fL (81.0-99.0); Nucleated Red Blood Cells % 0 %; Platelet Count 289 10^3/uL (130-400); Red Cell Dist. Width 12.5 % (11.5-14.5)
[2025-03-16] MEDS: PROTONIX 40 MG PO (08:22)
[2025-03-16] MEDS: HEPARIN 5000 UNITS SC (08:23)
[2025-03-16] MEDS: FOLVITE 1 MG PO (08:23)
[2025-03-16] MEDS: MAGNESIUM OXIDE 400 MG PO (08:23)
[2025-03-16] MEDS: THIAMINE INJECTION 200 MG IV (08:23)
[2025-03-16] MEDS: LOPRESSOR 12.5 MG PO (08:24)
[2025-03-16 08:43] LABS: Blood Urea Nitrogen 15 mg/dl (7-17); Calcium 8.8 mg/dl (8.4-10.2); Carbon Dioxide 29 mmol/L (22-30); Chloride 96 mmol/L (98-107); Glucose 132 mg/dl (70-99); Magnesium 1.4 mg/dl (1.6-2.3); Potassium 3.9 mmol/L (3.5-5.1); Sodium 128 mmol/L (135-145); eGFR > 60.00
[2025-03-16] MEDS: MAGNESIUM SULFATE 100 IV (10:13)
--- NOTE | 2025-03-16 11:08 | W.PN.NEPH.PH ---
Today's Communication / Plan
-
follow bmp
FR 1200c
Assessment/Plan
-
IMP:
Altered mental status
New atrial fibrillation
LENA
Hyponatremia
Hypokalemia
Hypomagnesemia
Hypothyroid - H/O thyroid ablation therapy on levothyroxin. Poor compliance likely more than last 2 weeks. TSH 28, FT4 1.6.
ETOH
Hypocalcemia
Mild rhabdomyolysis
PLan:
A/w AMS, decreased po intake and meds
LENA-suspect prerenal, however recent addition of aldactone in Sep too , creatinine improved to 0.7 with anglican of blood pressure
Renal ultrasound normal, holding ACEI and MRA
Hyponatremia-high ADH state , U osmo 295 and U na low 16, was only taking liquids recently+chr ETOH use
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
CPK levels dropping
maintain FR 40ounces/day
encourage solute intake
TSH high 28, resumed on LT4
BP soft, hold all anti HTN meds
afib per cards
d/w pt and nursing
-
-
Date of Service: March 16, 2025
CC / HPI / ROS
-
Chief Complaint:
LENA/Hyponatremia
History of Present Illness:
Creatinine improving to 0.7
Hyponatremia improved to 127 following hypertonic saline administration
Blood pressure remains soft only on metoprolol at this time
Review of Systems:
Nonoliguric
More awake and interactive and wants to go home
No fevers
Labs
-
Labs:
WBC 6.0 10^3/uL (4.8-10.8) 03/16/25 07:45
RBC 3.08 10^6/uL (4.20-5.40) L 03/16/25 07:45
Hgb 8.9 g/dL (12.0-16.0) L 03/16/25 07:45
Hct 26.0 % (37.0-47.0) L 03/16/25 07:45
Plt Count 289 10^3/uL (130-400) 03/16/25 07:45
Sodium 128 mmol/L (135-145) L 03/16/25 07:45
Potassium 3.9 mmol/L (3.5-5.1) D 03/16/25 07:45
Chloride 96 mmol/L (98-107) L 03/16/25 07:45
Carbon Dioxide 29 mmol/L (22-30) 03/16/25 07:45
BUN 15 mg/dl (7-17) 03/16/25 07:45
Creatinine 0.7 mg/dL (0.6-1.0) 03/16/25 07:45
eGFR > 60.00 03/16/25 07:45
Glucose 132 mg/dl (70-99) H 03/16/25 07:45
Calcium 8.8 mg/dl (8.4-10.2) 03/16/25 07:45
Phosphorus 2.3 mg/dl (2.5-4.5) L 03/16/25 07:45
Albumin 4.7 g/dl (3.5-5.0) 03/13/25 19:51
Physical Exam
-
Vital Signs:
Vital Signs
Temp Pulse Resp BP Pulse Ox
98.0 F 79 16 122/48 96
03/16/25 08:00 03/16/25 08:24 03/16/25 08:00 03/16/25 08:24 03/16/25 08:00
Cardiovascular:: Regular rate and rhythm
Respiratory:: Bilateral: CTA
Lung Excursion:: Normal
Abdomen:: Nontender and Soft
Bowel Sounds:: Normal
Extremity Edema:: None: Bilateral:
Patricai Catheter: No
--- NOTE | 2025-03-16 12:26 | W.DCSUMMARY ---
Discharge Summary
Discharge Data
Date of Admission: 03/13/25
Date of Discharge: 03/16/25
Total time spent discharging patient (in min): 48
-
Pending Results: No
Hospital Course
Ms. Sharma is a 69-year-old female with medical history of COPD (not on home oxygen), hypertension, hypothyroidism, peptic ulcer disease, diverticulitis (status post bowel resection and reanastomosis), breast cancer (status post lumpectomy), and
alcohol use who presented with lethargy and fatigue. Her symptoms began approximately 2 weeks ago which coincides with when she stopped drinking alcohol. Her symptoms have been progressing since that time. She has not been taking her home
medications consistently and has not been eating. Reportedly she has been having falls. In the ED she was found to be borderline hypotensive and had a serum sodium of 121 and a creatinine of 2.2. Her TSH was elevated at 29 with a normal free T4
of 1.6. She was reportedly noted to have A-fib with controlled heart rate. However EKG and telemetry monitoring showed normal sinus rhythm with PACs. She was started beta-blockade for tachycardia instead of a calcium channel iesha considering
her prior history of lower extremity edema with calcium channel blockers. She was started on hypertonic saline and admitted for further evaluation and management.
Her serum sodium and mental status slowly improved. She required frequent electrolyte repletion for hypomagnesemia, hypokalemia, and hypophosphatemia in addition to her hyponatremia. Her kidney function also improved with IV fluids. She was found
to have nontraumatic rhabdomyolysis with an initial CK of 1127 which steadily improved to 333 on the day of discharge. She is being continued on thiamine and folate considering history of chronic alcohol use. She was followed by nephrology and
cardiology during this admission. Her home spironolactone and olmesartan have been discontinued. She will need to follow-up closely with her primary care physician in a few days to repeat blood work to monitor her electrolytes and kidney function.
She has been instructed to continue taking her home levothyroxine 100 mcg daily. She will need to repeat her thyroid function test in 1 to 2 months. At the time of hospital discharge she was medically stable.
General: No Apparent Distress, Comfortable and Conversant
HEENT: NormoCephalic, Moist mucous membranes, Atraumatic
Respiratory: Clear and Non Labored Respirations
Cardiac: Regular rhythm, heart rate 80
GI: Soft, Non Tender, Non Distended and Normal Bowel Sounds
Musculoskeletal: No Edema, no deformity
Skin: Warm and dry
: NO Patricia
Neuro: Awake, Alert, Nonfocal/grossly intact
Psych: Calm and cooperative
Discharge Plan
-
Patient Disposition: Home with Home Care
Discharge Diagnosis/Procedures: Symptomatic hyponatremia, acute metabolic encephalopathy, LENA, nontraumatic rhabdomyolysis
Diet: Restrict fluids to 64 oz
Blood Work: Basic metabolic panel with magnesium and phosphorus levels in 3 to 4 days
Activity Restrictions/Additional Instructions:
You were admitted for management of hyponatremia and encephalopathy. Your blood sodium levels improved with fluid restriction and IV fluids. Some of your home medications were stopped including your spironolactone and olmesartan. You had a kidney
injury initially which resolved after being given IV fluids. You had rhabdomyolysis which means a breakdown of some of your muscles, which can injure your kidneys. Your rhabdomyolysis improved with IV fluids. You did have some electrolyte
abnormalities in your blood work which were addressed by giving you supplemental electrolytes. You were also started on a medication called metoprolol tartrate because your heart rate was too fast. Your heart rate is now better controlled. You
will need to follow-up closely with your primary care physician after hospital discharge for medication adjustments as needed and to repeat blood work to monitor your electrolytes and kidney function. You should avoid drinking too much water in
order to avoid recurrent hyponatremia. You should drink about 64 ounces of water per day. Please continue taking your home thyroid medication as prescribed. Avoid excessive alcohol use. Continue taking thiamine and folate which you were started
on during this admission and will be prescribed for you at discharge.
Referrals:
Ludivina Randall MD [Family Provider, Internal Medicine]
Prescriptions:
New
folic acid 1 mg Tablet
1 mg PO DAILY Qty: 30 0RF
magnesium oxide 400 mg (241.3 mg magnesium) Tablet
400 mg PO DAILY Qty: 20 0RF
metoprolol tartrate 25 mg Tablet
12.5 mg PO BID 30 Days Qty: 30 0RF
thiamine mononitrate (vit B1) 100 mg Tablet
100 mg PO BID Qty: 60 0RF
Continued
levothyroxine 100 mcg tablet
100 mcg PO DAILY
pantoprazole 40 mg tablet,delayed release (DR/EC)
40 mg PO DAILY
simvastatin 20 mg tablet
20 mg PO HS
albuterol sulfate 90 mcg/actuation HFA aerosol inhaler
2 inh INHALATION Q6HPRN PRN (Reason: sob/wheezing)
fluticasone furoate-vilanterol [Breo Ellipta] 100-25 mcg/dose blister with device
1 inh INHALATION DAILY
lorazepam 1 mg tablet
1 mg PO BIDPRN PRN (Reason: anxiety)
Patient Comments:
03/14/25: filled #90 tabs/45 day supply on 01/21/25 at [place] [id number] [facility]
oxycodone 5 mg tablet
5 mg PO Q4HPRN PRN (Reason: moderate pain)
Patient Comments:
03/14/25: filled #180 tabs/30 day supply on 03/09/25 at [place] [id number] [facility]
Discontinued
spironolactone 50 mg tablet
50 mg PO DAILY
olmesartan 40 mg tablet
40 mg PO DAILY
Discharge Orders:
Discharge Patient (As Directed); Ordered 03/16/25
Ordered By: Kalpesh Ludwig
Discharge Date and Time
Print Language: ARGENTINE
[2025-03-16 12:27] VITALS: BP 99/46
[2025-03-16] MEDS: FLUZONE HIGH-DOSE 2025-26 0.5 ML IM (12:57)
--- NOTE | 2025-03-16 15:54 | CM ---
Pt cleared for discharge to home today. She was ambulatory in her room at the time of my visit.
IMM reviewed and patient signed. Pt provided with a copy.
Plan: Discharge to home with no identified needs.
[2025-03-16 16:44] VITALS: BP 99/49
== END 2025-03-16 17:26 | disposition home health service (06) | DRG 640 ==
LOC: 3 WEST ACU 23:55
PROVIDERS: Emergency Medicine; ADMITTING PHYSICIAN Internal Medicine; ATTENDING PHYSICIAN Internal Medicine; CONSULT PHYSICIAN Internal Medicine; CONSULT PHYSICIAN Internal Medicine Cardiovascular Disease; EMERGENCY PHYSICIAN Student in an Organized Health Care Education/Training Program; FAMILY PHYSICIAN Internal Medicine
PROC: 3E02340 Introduction of Influenza Vaccine into Muscle, Percutaneous Approach (ICD-10-PCS; 2025-03-16)
DX: E87.1 Hypo-osmolality and hyponatremia (principal); G93.41 Metabolic encephalopathy; N17.9 Acute kidney failure, unspecified; M62.82 Rhabdomyolysis; E03.8 Other specified hypothyroidism; J44.9 Chronic obstructive pulmonary disease, unspecified; F17.210 Nicotine dependence, cigarettes, uncomplicated; I48.91 Unspecified atrial fibrillation; N18.9 Chronic kidney disease, unspecified; E87.6 Hypokalemia; E83.42 Hypomagnesemia; E83.51 Hypocalcemia; F10.10 Alcohol abuse, uncomplicated; E78.5 Hyperlipidemia, unspecified; E83.39 Other disorders of phosphorus metabolism; I12.9 Hypertensive chronic kidney disease with stage 1 through stage 4 chronic kidney disease, or unspecified chronic kidney disease; E86.1 Hypovolemia; G47.00 Insomnia, unspecified; G89.29 Other chronic pain; I49.40 Unspecified premature depolarization; R29.6 Repeated falls; Z11.52 Encounter for screening for COVID-19; Z23 Encounter for immunization; Z79.51 Long term (current) use of inhaled steroids; Z79.890 Hormone replacement therapy; Z79.899 Other long term (current) drug therapy; Z85.3 Personal history of malignant neoplasm of breast; Z91.148 Patient's other noncompliance with medication regimen for other reason; Z92.3 Personal history of irradiation
CPT/HCPCS: 70450; 70551; 71046; 76775; 80048; 80053; 80061; 81003; 81015; 82077; 82533; 82550; 82607; 82746; 83735; 83935; 84100; 84300; 84439; 84443; 85025; 85027; 87086; 87088; 87186; 87811; 90662; 93005; 93306; 94640; 96365; 96375; 97163; 99285; 99406; G0008